=== PATIENT | female | born 1970 | race Caucasian/White ===

== ENCOUNTER 2020-07-05 06:10 | Emergency (ER) | payer BC ==
[2020-07-05] MEDS ORDERED: CEFTRIAXONE INJ 1000 MG VIAL IM ONE (06:48)
[2020-07-05] MEDS ORDERED: LIDOCAINE 1% INJ (10 MG/ML) 10 ML MDV INJ ONE (06:49)
--- NOTE | 2020-07-05 07:03 | ER Document Report ---
ED Oral Problem - General Chief Complaint: Toothache Stated Complaint: FACE SWOLLEN Time Seen by Provider: 07/05/20 06:43 Primary Care Provider: IVETTE MASON MD [Primary Care Provider] - Follow up as needed Notes: CHIEF COMPLAINT: Dental pain and facial swelling HPI: 50-year-old female with history of chronically poor dentition presenting for facial swelling over the last 2 to 3 days on the right side. No fever. Believes she has an infection from a bad tooth. Patient states the swelling was worse today after sleeping on a heating pad last night ROS: See HPI - all other systems were reviewed and are otherwise negative Constitutional: no fever Eyes: no drainage, no blurred vision ENT: no runny nose, no sore throat, positive facial swelling Integumentary: no rash Allergy: no hives MEDICATIONS: I agree with the patient medications as charted by the RN. ALLERGIES: I agree with the allergies as charted by the RN. PAST MEDICAL HISTORY/PAST SURGICAL HISTORY: Reviewed and agree as charted by RN. SOCIAL HISTORY: Reviewed and agree as charted by RN. FAMILY HISTORY: No significant familial comorbid conditions directly related to patient complaint EXAM: Reviewed vital signs as charted by RN. CONSTITUTIONAL: Alert and oriented and responds appropriately to questions. Well-appearing; well-nourished HEAD: Normocephalic; atraumatic EYES: PERRL; Conjunctivae clear, sclerae non-icteric ENT: normal nose; no rhinorrhea; moist mucous membranes; pharynx without lesions noted, no uvula edema or deviation, no tonsillar hypertrophy, phonation normal. There are dental caries noted to the right upper premolars. No definitive defined abscess along the gingiva. Mild trismus. No sublingual swelling. There is soft tissue swelling in the right cheek mandible and preseptal region to the level of the inferior orbit of the right eye. No palpable abscess NECK: Supple without meningismus; non-tender; no cervical lymphadenopathy, no masses CARD: RRR; no murmurs, no clicks, no rubs, no gallops; symmetric distal pulses RESP: Normal chest excursion without splinting or tachypnea; breath sounds clear and equal bilaterally; no wheezes, no rhonchi, no rales, pulse oximetry ABD/GI: Normal bowel sounds; non-distended; soft, non-tender, no rebound, no guarding; no palpable organomegaly or masses. BACK: The back appears normal and is non-tender to palpation, there is no CVA tenderness EXT: Normal ROM in all joints; non-tender to palpation; no cyanosis, no effusions, no edema SKIN: Normal color for age and race; warm; dry; good turgor NEURO: Moves all extremities equally; Motor and sensory function intact PSYCH: The patient's mood and manner are appropriate. Grooming and personal hygiene are appropriate. MDM: 50-year-old female with a facial cellulitis from a dental abscess. No defined abscess for drainage at this time. Discussed with the patient offered IV antibiotics she prefers intramuscular antibiotics and discharged with oral antibiotics states she does have dental insurance and will find a dentist for follow-up - Related Data Allergies/Adverse Reactions: Shellfish * [Shellfish] Allergy (Verified 03/29/14 14:56) Past Medical History - Social History Smoking Status: Unknown if Ever Smoked Family History: Reviewed & Not Pertinent Past Surgical History: Reports: Hx Orthopedic Surgery - left hip,, Hx Tubal Ligation Physical Exam - Vital signs Vitals: Temp Pulse Resp BP Pulse Ox 97.8 F 89 16 108/57 L 99 07/05/20 06:22 07/05/20 06:22 07/05/20 06:22 07/05/20 06:22 07/05/20 06:22 Course - Vital Signs Vital signs: Temp Pulse Resp BP Pulse Ox 97.8 F 89 16 108/57 L 99 07/05/20 06:22 07/05/20 06:22 07/05/20 06:22 07/05/20 06:22 07/05/20 06:22 Discharge - Discharge Clinical Impression: Facial cellulitis, Dental abscess Condition: Stable Disposition: HOME, SELF-CARE Additional Instructions: 1. Take the medications as prescribed, if you were written antibiotics make sure that you finish them. 2. You need to follow up with a dentist for definitive evaluation and care of your dental problems 3. return to the ED for any facial swelling, fever > 101, difficulty swallowing or opening the mouth. 4. You may attempt to follow up with the [facility] for further care as well as through the dental list provided. 5. you may want to consider a dental discount plan such as www.dentalplans.com to help with costs of dental care as you do not have dental insurance Prescriptions: Clindamycin HCl 300 mg PO TID #30 capsule Hydrocodone/Acetaminophen [[place] 5-325 mg Tablet] 1 tab PO Q4 PRN #10 tablet PRN Reason: Referrals: IVETTE MASON MD [Primary Care Provider] - Follow up as needed
[2020-07-05] MEDS ORDERED: HYDROCODONE/ACETAMINOPHEN 5-325 MG (6 TAB/ER DISP) PO PRN (07:08)
[2020-07-05 07:27] VITALS: BP 108/63
--- NOTE | 2020-07-05 11:40 | ER Document Report ---
Doctor's Note Notes: 07/05/20 11:40 The prescriptions for clindamycin and [place] did not transfer over to the pharmacy. I have resent these prescriptions this is my only interaction with this patient.
== END 2020-07-05 07:27 | disposition home or self-care (01) ==
LOC: ER 06:10
DX: K04.7 Periapical abscess without sinus (principal); K02.9 Dental caries, unspecified; L03.211 Cellulitis of face; Z91.013 Allergy to seafood
CPT/HCPCS: 99284; 96372; J0696